=== PATIENT | male | born 1960 | race Caucasian/White ===

== ENCOUNTER 2017-11-08 01:17 | Outpatient (CLI) | payer MEDICARE, MEDICAID ==
[~2017-11-08 01:17] MED LIST: BUPR150T8 PO; FLO0.4C PO; GABA600T PO; HYDR-568 PO; INSU100V36 SQ; LANTUS SQ; LISI-604 PO; OXYB5TAB80 PO; SAXA5TAB PO; TOP25T PO; WARF5TAB PO; ZOC40T PO
== END 2017-11-08 23:59 | disposition home or self-care (01) ==
LOC: DIABETIC 01:17
PROVIDERS: ATTEND Family Medicine
DX: E11.9 Type 2 diabetes mellitus without complications (principal)
CPT/HCPCS: G0108

== ENCOUNTER 2018-03-31 18:45 | Inpatient (IN) | payer MEDICARE, OTHER ==
[~2018-03-31] VITALS: Ht 180.3 cm; Wt 73.0 kg
[2018-03-31 19:21] LABS: BASOPHILS # (AUTO) 0.1 X10'3 (0-0.2); BASOPHILS % (AUTO) 0.8 % (0-1); EOSINOPHILS % (AUTO) 0.7 % (0-6); HEMATOCRIT 42.8 % (42.0-52.0); HEMOGLOBIN 14.4 g/dl (14.0-17.9); LYMPHOCYTES % (AUTO) 14.9 % (21-51); MEAN CORPUSCULAR HEMOGLOBIN 32.2 PG (27.0-31.0); MEAN CORPUSCULAR HGB CONC 33.7 % (33.0-36.5); MEAN CORPUSCULAR VOLUME 95.7 FL (78-98); MEAN PLATELET VOLUME 8.7 FL (7.4-10.4); MONOCYTES # (AUTO) 0.4 X10'3 (0-0.9); MONOCYTES % (AUTO) 5.8 % (2-12); NEUTROPHILS # (AUTO) 5.2 X10'3 (1.8-7.7); NEUTROPHILS % (AUTO) 77.8 % (42-75); PLATELET COUNT 208 X10'3 (140-440); RED BLOOD COUNT 4.47 X10'6 (4.70-6.10); RED CELL DISTRIBUTION WIDTH 13.9 % (11.5-14.5); WHITE BLOOD COUNT 6.7 X10'3 (4.5-11.0)
[2018-03-31] MEDS ORDERED: INSU100V9 SQ (19:27)
[2018-03-31 19:33] LABS: PARTIAL THROMBOPLASTIN TIME 23 SECONDS (22-32)
[2018-03-31 19:40] LABS: ALANINE AMINOTRANSFERASE 30 U/L (12-78); ALBUMIN 3.4 G/DL (3.4-5.0); ALBUMIN/GLOBULIN RATIO 1.2 (1.1-1.5); ALKALINE PHOSPHATASE 79 IU/L (46-116); ANION GAP 10 (8-16); ASPARTATE AMINO TRANSFERASE 21 U/L (10-37); BILIRUBIN,TOTAL 0.5 MG/DL (0.1-1.0); BLOOD UREA NITROGEN 25 MG/DL (7-18); BUN/CREATININE RATIO 14.9 (5.4-32.0); CALCIUM 8.5 MG/DL (8.5-10.1); CHLORIDE 101 MMOL/L (99-107); CREATININE 1.68 MG/DL (0.60-1.10); POTASSIUM 4.2 MMOL/L (3.5-5.1); SODIUM 134 MMOL/L (135-145); TOTAL CARBON DIOXIDE 23.4 MMOL/L (24-32); TOTAL PROTEIN 6.3 G/DL (6.4-8.2); eGFR 42 ML/MIN
[2018-03-31 19:45] LABS: GLUCOSE 521 MG/DL (70-104)
[2018-03-31] MEDS ORDERED: normal saline 1000ml 1,000 ML IVB ONE ×2 (20:05→20:08)
[2018-03-31] MEDS ORDERED: insulin regular, human 10 units/0.1 ml syringe IV ONE (20:20)
[2018-03-31] MEDS ORDERED: normal saline 1000ml 1,000 ML IV ONE ×2 (20:20→22:25)
[2018-03-31 20:36] LABS: ABG BASE EXCESS -8.5 mmol/L (-2.0-3.0); ABG HCO3 16.2 mmol/L (22.0-26.0); ABG PCO2 (T) 30.3 mmHg (35.0-48.0); ABG PH (T) 7.342 (7.350-7.450); ABG PO2 (T) 72.8 mmHg (83-108); ALLEN'S TEST Positive; FCOHb 0.6 % (0.5-1.5); FMetHb 0.2 % (0.3-1.12); FO2Hb 94.2 % (94-100); PATIENT TEMPERATURE 36.2; RESPIRATORY RATE (OBSERVED) 20 b/min; TOTAL HEMOGLOBIN 12.8 G/dl (14.0-18.0)
[2018-03-31 21:28] LABS: CLARITY,URINE CLEAR (Clear); COLOR,URINE YELLOW (Yellow); GLUCOSE, URINE >=1000 mg/dl (Neg); KETONES,URINE 15 mg/dl (Neg); LEUKOCYTE ESTERASE ,URINE NEGATIVE (Neg); NITRITES, URINE NEGATIVE (Neg); OCCULT BLOOD,URINE NEGATIVE (Neg); PROTEIN,URINE NEGATIVE (Neg); UA COLLECTION TYPE CLN CATCH MIDSTREAM; UROBILINOGEN,URINE 0.2 E.U/dL (0.2-1.0)
[2018-03-31 21:37] LABS: BACTERIA,URINE NONE SEEN /HPF (Neg); MUCUS STRANDS NONE SEEN /LPF (Neg); RBC,URINE 0-2 /HPF (0-2); SQUAMOUS EPITHELIAL CELL,UR FEW /LPF (FEW); WBC,URINE 0-4 /HPF (0-4)
[2018-03-31 21:42] LABS: URINE AMPHETAMINE SCREEN NEGATIVE (Neg); URINE BARBITUATE SCREEN NEGATIVE (Neg); URINE BENZODIAZEPINES SCREEN NEGATIVE (Neg); URINE CANNABINOID SCREEN NEGATIVE (Neg); URINE COCAINE SCREEN NEGATIVE (Neg); URINE METHADONE SCREEN NEGATIVE (Neg); URINE OPIATE SCREEN NEGATIVE (Neg); URINE PHENCYCLIDINE SCREEN NEGATIVE (Neg)
[2018-03-31] MEDS ORDERED: iohexol 350MG/ML 100ml bottle IV ONE (22:28)
[2018-04-01] MEDS ORDERED: normal saline 1000ml 1,000 ML IV SCH (00:56)
[2018-04-01] MEDS ORDERED: ondansetron/PF 4mg/2ml inj IV PRN (01:00)
[2018-04-01] MEDS ORDERED: acetaminophen 325mg tablet PO PRN (01:00)
[2018-04-01] MEDS ORDERED: magnesium hydroxide 30ml (MOM) UD suspension PO PRN (01:00)
[2018-04-01] MEDS ORDERED: mag hydrox/Alum hydrox/simeth 30ml oral suspension PO PRN (01:00)
[2018-04-01] MEDS ORDERED: dextrose ORAL solution 15 GM/59 ML bottle PO PRN ×2 (01:05)
[2018-04-01] MEDS ORDERED: dextrose 50%-water 50ml dispensing syringe IV PRN ×2 (01:05)
[2018-04-01] MEDS ORDERED: MESSAGE TO PHARMACY PO ONE (01:05)
[2018-04-01] MEDS ORDERED: insulin Lispro (HumaLOG) vial - multi-dose SQ SCH (01:05)
[2018-04-01] MEDS ORDERED: glucagon, human recombinant 1mg kit SUBCUT PRN (01:05)
[2018-04-01 01:39] LABS: HEMOGLOBIN A1C 11.1 % (4.5-6.2)
[2018-04-01 01:40] VITALS: BP 113/56
[2018-04-01 07:08] VITALS: BP 129/63
[2018-04-01] MEDS ORDERED: lisinopril 5mg tablet PO SCH (08:00)
[2018-04-01] MEDS ORDERED: tamsulosin 0.4mg capsule PO SCH (08:00)
[2018-04-01] MEDS ORDERED: gabapentin 300mg capsule PO SCH (08:00)
[2018-04-01] MEDS ORDERED: buPROPion SR 150mg tablet PO SCH (08:00)
[2018-04-01] MEDS ORDERED: heparin, porcine 5000 units/ml vial SQ SCH (08:00)
[2018-04-01] MEDS ORDERED: enoxaparin 30mg/0.3ml syringe SUBCUT SCH (10:20)
[2018-04-01 11:00] VITALS: BP 165/63
[2018-04-01] MEDS ORDERED: topiramate 25mg tablet PO SCH (21:00)
[2018-04-01] MEDS ORDERED: insulin glargine (Lantus) pen - multi-dose SQ SCH (21:00)
[2018-04-01] MEDS ORDERED: atorvastatin 20mg tablet PO SCH (21:00)
[2018-04-01] MEDS ORDERED: non-formulary drug (Simvastatin* (Zocor*) 1 TAB) PO SCH (21:00)
== END 2018-04-01 12:44 | disposition left against medical advice (07) | DRG 638 ==
LOC: ER 18:47 → SUR 3N 04-01 00:56
PROVIDERS: ADMIT Internal Medicine; ATTEND Internal Medicine
PROC: B32T1ZZ Computerized Tomography (CT Scan) of Left Pulmonary Artery using Low Osmolar Contrast (ICD-10-PCS; principal; 2018-03-31)
PROC: B3201ZZ Computerized Tomography (CT Scan) of Thoracic Aorta using Low Osmolar Contrast (ICD-10-PCS; 2018-03-31)
PROC: B32S1ZZ Computerized Tomography (CT Scan) of Right Pulmonary Artery using Low Osmolar Contrast (ICD-10-PCS; 2018-03-31)
DX: E11.65 Type 2 diabetes mellitus with hyperglycemia (principal); E87.2 Acidosis; N13.30 Unspecified hydronephrosis; K76.6 Portal hypertension; E11.42 Type 2 diabetes mellitus with diabetic polyneuropathy; I25.10 Atherosclerotic heart disease of native coronary artery without angina pectoris; N32.89 Other specified disorders of bladder; N32.0 Bladder-neck obstruction; M54.9 Dorsalgia, unspecified; G89.29 Other chronic pain; K80.20 Calculus of gallbladder without cholecystitis without obstruction; K21.9 Gastro-esophageal reflux disease without esophagitis; Z53.21 Procedure and treatment not carried out due to patient leaving prior to being seen by health care provider; Z88.8 Allergy status to other drugs, medicaments and biological substances; Z79.4 Long term (current) use of insulin; Z79.899 Other long term (current) drug therapy; Z79.01 Long term (current) use of anticoagulants; Z86.711 Personal history of pulmonary embolism; Z86.718 Personal history of other venous thrombosis and embolism; Z82.61 Family history of arthritis
CPT/HCPCS: 36415; 36600; 71045; 71275; 74176; 76700; 80053; 80305; 81001; 82803; 82948; 83036; 83605; 84484; 85018; 85025; 85610; 85730; 87040; 87070; 93005; 96374; 99285; J1644; J1815; J7030; Q9967

== ENCOUNTER 2018-05-01 16:39 | Inpatient (IN) | payer MEDICARE, MEDICAID ==
[~2018-05-01] VITALS: Ht 180.3 cm; Wt 86.4 kg
[~2018-05-01 16:39] MED LIST changes: +HYDR-4384 PO; -HYDR-568 PO; +INSU100V9 SQ; -LANTUS SQ; -WARF5TAB PO
[2018-05-01] MEDS ORDERED: CefTRIAXone 2gm/D5W 50ml 50 ML IV ONE (17:05)
[2018-05-01] MEDS ORDERED: normal saline 1000ML IV soln IV ONE (17:05)
[2018-05-01 17:32] LABS: BASOPHILS # (AUTO) 0.1 X10'3 (0-0.2); BASOPHILS % (AUTO) 0.9 % (0-1); EOSINOPHILS # (AUTO) 0.1 X10'3 (0-0.9); EOSINOPHILS % (AUTO) 1.8 % (0-6); HEMATOCRIT 48.2 % (42.0-52.0); LYMPHOCYTES # (AUTO) 1.1 X10'3 (1.1-4.8); MEAN CORPUSCULAR HEMOGLOBIN 31.6 PG (27.0-31.0); MEAN CORPUSCULAR HGB CONC 33.2 % (33.0-36.5); MEAN CORPUSCULAR VOLUME 95.2 FL (78-98); MEAN PLATELET VOLUME 7.9 FL (7.4-10.4); MONOCYTES # (AUTO) 0.4 X10'3 (0-0.9); MONOCYTES % (AUTO) 6.6 % (2-12); NEUTROPHILS # (AUTO) 4.6 X10'3 (1.8-7.7); NEUTROPHILS % (AUTO) 72.7 % (42-75); PLATELET COUNT 204 X10'3 (140-440); RED BLOOD COUNT 5.06 X10'6 (4.70-6.10); RED CELL DISTRIBUTION WIDTH 14.1 % (11.5-14.5); WHITE BLOOD COUNT 6.4 X10'3 (4.5-11.0)
[2018-05-01 17:39] LABS: PARTIAL THROMBOPLASTIN TIME 25 SECONDS (22-32); PROTHROMBIN TIME 10.3 SECONDS (9.0-12.0)
[2018-05-01 17:44] LABS: ALANINE AMINOTRANSFERASE 28 U/L (12-78); ALBUMIN 3.4 G/DL (3.4-5.0); ALBUMIN/GLOBULIN RATIO 1.1 (1.1-1.5); ALKALINE PHOSPHATASE 90 IU/L (46-116); ANION GAP 11 (8-16); ASPARTATE AMINO TRANSFERASE 15 U/L (10-37); BILIRUBIN,TOTAL 0.6 MG/DL (0.1-1.0); BLOOD UREA NITROGEN 25 MG/DL (7-18); BUN/CREATININE RATIO 23.4 (5.4-32.0); CALCIUM 8.7 MG/DL (8.5-10.1); CHLORIDE 106 MMOL/L (99-107); CREATININE 1.07 MG/DL (0.60-1.10); GLUCOSE 220 MG/DL (70-104); MAGNESIUM 2.1 MG/DL (1.5-2.4); SODIUM 142 MMOL/L (135-145); TOTAL CARBON DIOXIDE 25.2 MMOL/L (24-32); TOTAL PROTEIN 6.5 G/DL (6.4-8.2); eGFR 71 ML/MIN
[2018-05-01] MEDS ORDERED: LIDOcaine 2% 10ml TOPICAL JELLY (Urojet) MM ONE (17:55)
[2018-05-01 18:16] LABS: CLARITY,URINE CLOUDY (Clear); COLOR,URINE RED (Yellow); GLUCOSE, URINE >=1000 mg/dl (Neg); KETONES,URINE TRACE mg/dl (Neg); LEUKOCYTE ESTERASE ,URINE NEGATIVE (Neg); NITRITES, URINE NEGATIVE (Neg); OCCULT BLOOD,URINE LARGE (Neg); PROTEIN,URINE 100 mg/dl (Neg); UROBILINOGEN,URINE 0.2 E.U/dL (0.2-1.0)
[2018-05-01 18:26] LABS: UA COLLECTION TYPE CLN CATCH MIDSTREAM
[2018-05-01 18:28] LABS: RBC,URINE TNTC /HPF (0-2)
[2018-05-01 18:29] LABS: MUCUS STRANDS MODERATE /LPF (Neg); SQUAMOUS EPITHELIAL CELL,UR MODERATE /LPF (FEW)
[2018-05-01 18:30] LABS: BACTERIA,URINE FEW /HPF (Neg)
[2018-05-01] MEDS ORDERED: SITA50TA PO (18:37)
[2018-05-01 18:39] LABS: CREATINE KINASE 59 U/L (39-308)
[2018-05-01] MEDS ORDERED: normal saline 1000ML IV soln IVB ONE (20:10)
[2018-05-01] MEDS ORDERED: acetaminophen 325mg tablet PO PRN (22:00)
[2018-05-01] MEDS ORDERED: mag hydrox/Alum hydrox/simeth 30ml oral suspension PO PRN (22:00)
[2018-05-01] MEDS ORDERED: morphine 2 MG/ML inj. syringe IV PRN ×2 (22:00)
[2018-05-01] MEDS ORDERED: magnesium hydroxide 30ml (MOM) UD suspension PO PRN (22:00)
[2018-05-01] MEDS ORDERED: ondansetron/PF 4mg/2ml inj IV PRN (22:00)
[2018-05-01] MEDS ORDERED: MESSAGE TO PHARMACY PO ONE (22:05)
[2018-05-01] MEDS ORDERED: dextrose ORAL solution 15 GM/59 ML bottle PO PRN ×2 (22:05)
[2018-05-01] MEDS ORDERED: glucagon, human recombinant 1mg kit SUBCUT PRN (22:05)
[2018-05-01] MEDS ORDERED: dextrose 50%-water 50ml dispensing syringe IV PRN ×2 (22:05)
[2018-05-01] MEDS ORDERED: HYDROcodone/acetaminophen 5mg/325mg tablet PO PRN (22:05)
[2018-05-01] MEDS: normal saline 1000ml 1,000 ML IV SCH ×2 (22:45→23:23)
[2018-05-01 23:30] VITALS: BP 163/85
[2018-05-02 03:36] LABS: BASOPHILS % (AUTO) 0.2 % (0-1); EOSINOPHILS # (AUTO) 0.1 X10'3 (0-0.9); EOSINOPHILS % (AUTO) 0.9 % (0-6); HEMATOCRIT 47.2 % (42.0-52.0); HEMOGLOBIN 15.6 g/dl (14.0-17.9); LYMPHOCYTES # (AUTO) 1.4 X10'3 (1.1-4.8); LYMPHOCYTES % (AUTO) 21.8 % (21-51); MEAN CORPUSCULAR HEMOGLOBIN 31.8 PG (27.0-31.0); MEAN CORPUSCULAR VOLUME 96.4 FL (78-98); MEAN PLATELET VOLUME 7.8 FL (7.4-10.4); MONOCYTES # (AUTO) 0.4 X10'3 (0-0.9); MONOCYTES % (AUTO) 5.7 % (2-12); NEUTROPHILS # (AUTO) 4.6 X10'3 (1.8-7.7); NEUTROPHILS % (AUTO) 71.4 % (42-75); PLATELET COUNT 211 X10'3 (140-440); RED BLOOD COUNT 4.89 X10'6 (4.70-6.10); WHITE BLOOD COUNT 6.5 X10'3 (4.5-11.0)
[2018-05-02 03:42] LABS: ALBUMIN 3.2 G/DL (3.4-5.0); ANION GAP 9 (8-16); BLOOD UREA NITROGEN 23 MG/DL (7-18); BUN/CREATININE RATIO 27.1 (5.4-32.0); CALCIUM 8.9 MG/DL (8.5-10.1); CHLORIDE 108 MMOL/L (99-107); CREATININE 0.85 MG/DL (0.60-1.10); GLUCOSE 152 MG/DL (70-104); POTASSIUM 4.3 MMOL/L (3.5-5.1); SODIUM 144 MMOL/L (135-145); TOTAL CARBON DIOXIDE 27.4 MMOL/L (24-32); eGFR > 90 ML/MIN
[2018-05-02] MEDS: heparin, porcine 5000 units/ml vial SQ SCH ×2 (06:47→21:11)
[2018-05-02 07:00] VITALS: BP 121/73
[2018-05-02] MEDS ORDERED: buPROPion SR 150mg tablet PO SCH (08:00)
[2018-05-02] MEDS: buPROPion SR 150mg tablet PO SCH ×2 (08:15→21:10)
[2018-05-02] MEDS: CefTRIAXone/D5W-Rocephin 1gm 50 ML IV SCH (08:15)
[2018-05-02] MEDS: gabapentin 300mg capsule PO SCH ×3 (08:15→21:11)
[2018-05-02] MEDS: normal saline 1000ml 1,000 ML IV SCH ×2 (08:19→22:11)
[2018-05-02 11:35] VITALS: BP 139/80
[2018-05-02 20:00] VITALS: BP 139/83
[2018-05-02] MEDS: insulin glargine (Lantus) pen - multi-dose SQ SCH (21:00)
[2018-05-02] MEDS: atorvastatin 20mg tablet PO SCH (21:11)
[2018-05-03] VITALS: BP 137/87
[2018-05-03] MEDS: normal saline 1000ml 1,000 ML IV SCH (05:07)
[2018-05-03 05:21] LABS: BASOPHILS % (AUTO) 0.4 % (0-1); EOSINOPHILS # (AUTO) 0.1 X10'3 (0-0.9); EOSINOPHILS % (AUTO) 1.5 % (0-6); HEMATOCRIT 46.4 % (42.0-52.0); HEMOGLOBIN 15.6 g/dl (14.0-17.9); LYMPHOCYTES # (AUTO) 1.4 X10'3 (1.1-4.8); LYMPHOCYTES % (AUTO) 27.4 % (21-51); MEAN CORPUSCULAR HEMOGLOBIN 31.7 PG (27.0-31.0); MEAN CORPUSCULAR HGB CONC 33.6 % (33.0-36.5); MEAN CORPUSCULAR VOLUME 94.5 FL (78-98); MEAN PLATELET VOLUME 8.2 FL (7.4-10.4); MONOCYTES # (AUTO) 0.4 X10'3 (0-0.9); NEUTROPHILS # (AUTO) 3.2 X10'3 (1.8-7.7); NEUTROPHILS % (AUTO) 63.7 % (42-75); PLATELET COUNT 200 X10'3 (140-440); RED BLOOD COUNT 4.91 X10'6 (4.70-6.10); RED CELL DISTRIBUTION WIDTH 13.8 % (11.5-14.5)
[2018-05-03 05:46] LABS: ALBUMIN 3.3 G/DL (3.4-5.0); ANION GAP 11 (8-16); BLOOD UREA NITROGEN 20 MG/DL (7-18); BUN/CREATININE RATIO 25.3 (5.4-32.0); CALCIUM 8.9 MG/DL (8.5-10.1); CHLORIDE 104 MMOL/L (99-107); CREATININE 0.79 MG/DL (0.60-1.10); GLUCOSE 184 MG/DL (70-104); POTASSIUM 3.8 MMOL/L (3.5-5.1); SODIUM 140 MMOL/L (135-145); TOTAL CARBON DIOXIDE 24.9 MMOL/L (24-32); eGFR > 90 ML/MIN
[2018-05-03 07:02] VITALS: BP 120/58
[2018-05-03 07:17] VITALS: BP_SYST 120; BP_SYST 127; BP_SYST 128; BP_DIAS 58; BP_DIAS 81; BP_DIAS 87
[2018-05-03 07:19] VITALS: BP 120/58
[2018-05-03] MEDS: buPROPion SR 150mg tablet PO SCH ×2 (07:43→20:53)
[2018-05-03] MEDS: gabapentin 300mg capsule PO SCH ×3 (07:44→20:53)
[2018-05-03] MEDS: moxifloxacin 0.5% ophthalmic drops 3ml EACHEYE SCH ×2 (07:50→20:54)
[2018-05-03] MEDS: heparin, porcine 5000 units/ml vial SQ SCH ×2 (08:55→20:54)
[2018-05-03] MEDS: CefTRIAXone/D5W-Rocephin 1gm 50 ML IV SCH (08:55)
[2018-05-03 12:15] VITALS: BP 147/89
[2018-05-03 18:00] VITALS: BP 128/76
[2018-05-03] MEDS: insulin Lispro (HumaLOG) vial - multi-dose SQ SCH (18:32)
[2018-05-03] MEDS: atorvastatin 20mg tablet PO SCH (20:53)
[2018-05-03] MEDS: lactobacillus rhamnosus 10,000 MMU CELLS/CAPSULE PO SCH (20:53)
[2018-05-03] MEDS ORDERED: tamsulosin 0.4mg capsule PO SCH (21:00)
[2018-05-03] MEDS: insulin glargine (Lantus) pen - multi-dose SQ SCH (21:07)
[2018-05-04] VITALS: BP 169/94
[2018-05-04 00:30] VITALS: BP 119/79
[2018-05-04 06:05] LABS: ALBUMIN 3.3 G/DL (3.4-5.0); ANION GAP 9 (8-16); BLOOD UREA NITROGEN 18 MG/DL (7-18); BUN/CREATININE RATIO 22.5 (5.4-32.0); CHLORIDE 106 MMOL/L (99-107); GLUCOSE 144 MG/DL (70-104); POTASSIUM 4.1 MMOL/L (3.5-5.1); SODIUM 144 MMOL/L (135-145); TOTAL CARBON DIOXIDE 28.6 MMOL/L (24-32); eGFR > 90 ML/MIN
[2018-05-04 06:46] VITALS: BP 94/48
[2018-05-04] MEDS: gabapentin 300mg capsule PO SCH ×2 (07:41→13:04)
[2018-05-04] MEDS: lactobacillus rhamnosus 10,000 MMU CELLS/CAPSULE PO SCH (07:42)
[2018-05-04] MEDS: buPROPion SR 150mg tablet PO SCH (07:42)
[2018-05-04] MEDS: heparin, porcine 5000 units/ml vial SQ SCH (07:43)
[2018-05-04] MEDS: moxifloxacin 0.5% ophthalmic drops 3ml EACHEYE SCH (07:43)
[2018-05-04 08:01] LABS: HEMATOCRIT 46.6 % (42.0-52.0); HEMOGLOBIN 15.7 g/dl (14.0-17.9); MEAN CORPUSCULAR HEMOGLOBIN 32.2 PG (27.0-31.0); MEAN CORPUSCULAR HGB CONC 33.7 % (33.0-36.5); MEAN CORPUSCULAR VOLUME 95.4 FL (78-98); RED BLOOD COUNT 4.88 X10'6 (4.70-6.10); RED CELL DISTRIBUTION WIDTH 13.1 % (11.5-14.5); WHITE BLOOD COUNT 4.8 X10'3 (4.5-11.0)
[2018-05-04 08:02] LABS: MEAN PLATELET VOLUME 8.8 FL (7.4-10.4); NEUTROPHILS % (AUTO) 64.1 % (42-75); PLATELET COUNT 199 X10'3 (140-440)
[2018-05-04 08:03] LABS: BASOPHILS % (AUTO) 0.5 % (0-1); EOSINOPHILS # (AUTO) 0.1 X10'3 (0-0.9); EOSINOPHILS % (AUTO) 2.1 % (0-6); LYMPHOCYTES # (AUTO) 1.2 X10'3 (1.1-4.8); LYMPHOCYTES % (AUTO) 25.9 % (21-51); MONOCYTES # (AUTO) 0.4 X10'3 (0-0.9); MONOCYTES % (AUTO) 7.4 % (2-12)
[2018-05-04] MEDS: insulin Lispro (HumaLOG) vial - multi-dose SQ SCH ×2 (09:10→13:01)
[2018-05-04 11:00] VITALS: BP 101/67
[2018-05-04 13:24] VITALS: BP 114/72
[2018-05-04] MEDS ORDERED: TAMS0.4C32 PO (14:27)
== END 2018-05-04 17:01 | disposition home health service (06) | DRG 74 ==
LOC: ER 16:40 → ED HOLD 22:00 → SUR 3N 23:14
PROVIDERS: ADMIT Internal Medicine; ATTEND Family Medicine
DX: G90.8 Other disorders of autonomic nervous system (principal); N13.6 Pyonephrosis; I10 Essential (primary) hypertension; I95.9 Hypotension, unspecified; E11.43 Type 2 diabetes mellitus with diabetic autonomic (poly)neuropathy; Z60.2 Problems related to living alone; W18.39XA Other fall on same level, initial encounter; E78.5 Hyperlipidemia, unspecified; F32.9 Major depressive disorder, single episode, unspecified; G89.29 Other chronic pain; K21.9 Gastro-esophageal reflux disease without esophagitis; N40.1 Benign prostatic hyperplasia with lower urinary tract symptoms; R33.8 Other retention of urine; Z79.4 Long term (current) use of insulin; Z86.711 Personal history of pulmonary embolism; Z23 Encounter for immunization; Z88.8 Allergy status to other drugs, medicaments and biological substances; Z91.018 Allergy to other foods; Z83.3 Family history of diabetes mellitus; Z82.61 Family history of arthritis; Z82.49 Family history of ischemic heart disease and other diseases of the circulatory system; Z79.899 Other long term (current) drug therapy; Y93.89 Activity, other specified; Y92.091 Bathroom in other non-institutional residence as the place of occurrence of the external cause; Y99.8 Other external cause status
CPT/HCPCS: 36415; 70450; 71045; 74176; 80048; 80053; 81001; 82550; 82948; 83605; 83735; 84145; 84484; 85025; 85610; 85730; 87040; 87070; 87088; 93005; 93306; 93880; 96365; 99285; J0696; J1644; J1815; J7030; Q2037

== ENCOUNTER 2018-05-24 07:08 | Day surgery (SDC) | payer MEDICARE, MEDICAID ==
[2018-05-22 11:11] LABS: CLARITY,URINE CLEAR (Clear); COLOR,URINE YELLOW (Yellow); GLUCOSE, URINE >=1000 mg/dl (Neg); KETONES,URINE 15 mg/dl (Neg); LEUKOCYTE ESTERASE ,URINE NEGATIVE (Neg); NITRITES, URINE NEGATIVE (Neg); OCCULT BLOOD,URINE NEGATIVE (Neg); PH,URINE 5.5 (4.8-8.0); PROTEIN,URINE NEGATIVE (Neg); UROBILINOGEN,URINE 0.2 E.U/dL (0.2-1.0)
[2018-05-22 11:12] LABS: BASOPHILS % (AUTO) 0.5 % (0-1); EOSINOPHILS # (AUTO) 0.1 X10'3 (0-0.9); EOSINOPHILS % (AUTO) 1.5 % (0-6); LYMPHOCYTES # (AUTO) 1.2 X10'3 (1.1-4.8); LYMPHOCYTES % (AUTO) 21.3 % (21-51); MEAN CORPUSCULAR HEMOGLOBIN 31.8 PG (27.0-31.0); MEAN CORPUSCULAR HGB CONC 33.5 % (33.0-36.5); MEAN CORPUSCULAR VOLUME 94.9 FL (78-98); MEAN PLATELET VOLUME 7.7 FL (7.4-10.4); MONOCYTES # (AUTO) 0.4 X10'3 (0-0.9); MONOCYTES % (AUTO) 6.8 % (2-12); NEUTROPHILS % (AUTO) 69.9 % (42-75); PRE OP HEMATOCRIT 49.2 % (42.0-52.0); PRE OP HEMOGLOBIN 16.5 g/dL (14.0-17.9); PRE OP PLATELET COUNT 246 X10'3 (140-440); RED BLOOD COUNT 5.18 X10'6 (4.70-6.10); RED CELL DISTRIBUTION WIDTH 14.1 % (11.5-14.5)
[2018-05-22 11:15] LABS: UA COLLECTION TYPE CLN CATCH MIDSTREAM
[2018-05-22 11:19] LABS: BACTERIA,URINE NONE SEEN /HPF (Neg); MUCUS STRANDS FEW /LPF (Neg); RBC,URINE NONE SEEN /HPF (0-2); SPERM MANY /HPF (NEGATIVE); SQUAMOUS EPITHELIAL CELL,UR FEW /LPF (FEW); TRANSITIONAL EPI CELLS,URINE FEW /HPF; WBC,URINE 0-4 /HPF (0-4)
[2018-05-22 11:34] LABS: ALBUMIN 3.6 G/DL (3.4-5.0); ALKALINE PHOSPHATASE 115 IU/L (46-116); BLOOD UREA NITROGEN 17 MG/DL (7-18); BUN/CREATININE RATIO 22.1 (5.4-32.0); CALCIUM 8.9 MG/DL (8.5-10.1); CHLORIDE 104 MMOL/L (99-107); CREATININE 0.77 MG/DL (0.60-1.10); PRE OP ALT 30 U/L (30-65); PRE OP ANION GAP 8 (8-16); PRE OP AST 14 U/L (10-37); PRE OP BILIRUB, TOTAL 0.8 MG/DL (0.0-1.0); PRE OP SODIUM 142 MMOL/L (135-145); TOTAL CARBON DIOXIDE 29.7 MMOL/L (24-32); TOTAL PROTEIN 7.3 G/DL (6.4-8.2); eGFR > 90 ML/MIN
[2018-05-22 11:37] LABS: PRE OP GLUCOSE 203 MG/DL (70-104)
[2018-05-24] VITALS (10 sets, daily range): BP systolic 129–190; BP diastolic 76–102
[~2018-05-24] VITALS: Ht 180.3 cm; Wt 88.8 kg
[~2018-05-24 07:08] MED LIST changes: +EMPA10TA PO; -FLO0.4C PO; -OXYB5TAB80 PO; -SAXA5TAB PO; +TAMS0.4C32 PO; -TOP25T PO; +ceFOXitin 2 GM ADDvantage bag 100 ML IV ONE; +famotidine 20mg tablet PO ONE; +ringers solution, lacted 1,000 ML IV SCH
[2018-05-24] MEDS ORDERED: FLO0.4C PO (08:42)
[2018-05-24] MEDS ORDERED: epiNEPHrine 1 mg/ml inj ONE (08:49)
[2018-05-24] MEDS ORDERED: ceFAZolin 1000mg inj ONE (08:49)
[2018-05-24] MEDS ORDERED: BUPIVAcaine/PF 2.5mg/ml (0.25%) 10ml vial ONE (08:50)
[2018-05-24] MEDS ORDERED: sevoflurane 250ml liquid IH ONE (09:38)
[2018-05-24] MEDS ORDERED: midazolam 2 mg/2 ml injection ONE (09:43)
[2018-05-24] MEDS ORDERED: fentaNYL /PF 50mcg/ml 5ml ampule ONE (09:44)
[2018-05-24] MEDS ORDERED: rocuronium 10mg/ml inj IV ONE (09:45)
[2018-05-24] MEDS ORDERED: ePHEDrine 50MG/ML INJ. ONE (10:04)
[2018-05-24] MEDS ORDERED: propofol inj 20 ML IV ONE (10:04)
[2018-05-24] MEDS ORDERED: ringers solution, lacted 1,000 ML IV SCH (10:17)
[2018-05-24] MEDS ORDERED: proCHLORperazine 10 MG/2 ml inj IV PRN (10:20)
[2018-05-24] MEDS ORDERED: labetalol 20mg/4ml (5mg/ml) syringe IV PRN (10:20)
[2018-05-24] MEDS ORDERED: ondansetron/PF 4mg/2ml inj IV PRN (10:20)
[2018-05-24] MEDS ORDERED: morphine 4 MG/ML inj SYRINge IV PRN ×2 (10:20)
[2018-05-24] MEDS ORDERED: meperidine/PF 25mg/ml syringe IV PRN ×2 (10:20)
[2018-05-24] MEDS ORDERED: neostigmine methylsulfate 1 MG/ML 10ml vial ONE (10:53)
[2018-05-24] MEDS ORDERED: glycopyrrolate 0.2mg/ml inj ONE (10:53)
[2018-05-24] MEDS: meperidine/PF 25mg/ml syringe IV PRN ×3 (11:20→11:45)
== END 2018-05-24 12:10 | disposition home or self-care (01) ==
LOC: PAS 07:08
PROVIDERS: ATTEND Surgery
DX: K80.10 Calculus of gallbladder with chronic cholecystitis without obstruction (principal); I10 Essential (primary) hypertension; K21.9 Gastro-esophageal reflux disease without esophagitis; F32.9 Major depressive disorder, single episode, unspecified; N40.0 Benign prostatic hyperplasia without lower urinary tract symptoms; E66.9 Obesity, unspecified; G47.33 Obstructive sleep apnea (adult) (pediatric); M19.90 Unspecified osteoarthritis, unspecified site; G89.29 Other chronic pain; F41.8 Other specified anxiety disorders; E11.42 Type 2 diabetes mellitus with diabetic polyneuropathy; M06.9 Rheumatoid arthritis, unspecified; Z87.01 Personal history of pneumonia (recurrent); Z96.652 Presence of left artificial knee joint; Z96.661 Presence of right artificial ankle joint; Z96.662 Presence of left artificial ankle joint; Z86.711 Personal history of pulmonary embolism; Z79.01 Long term (current) use of anticoagulants; Z79.891 Long term (current) use of opiate analgesic; Z79.4 Long term (current) use of insulin; Z91.018 Allergy to other foods; Z72.89 Other problems related to lifestyle; Z98.890 Other specified postprocedural states; Z79.899 Other long term (current) drug therapy; Z88.8 Allergy status to other drugs, medicaments and biological substances; Z83.2 Family history of diseases of the blood and blood-forming organs and certain disorders involving the immune mechanism; Z84.89 Family history of other specified conditions; Z82.61 Family history of arthritis; Z83.3 Family history of diabetes mellitus; Z82.49 Family history of ischemic heart disease and other diseases of the circulatory system
CPT/HCPCS: 36415; 47562; 80053; 81001; 82948; 85025; J0171; J0690; J0694; J2175; J2250; J2704; J2710; J3010; J3490; J7120; A7000

== ENCOUNTER 2019-07-22 15:35 | Emergency (ER) | payer MEDICARE, MEDICAID ==
[~2019-07-22] VITALS: Ht 180.3 cm; Wt 89.1 kg
[~2019-07-22 15:35] MED LIST changes: +FLO0.4C PO; -TAMS0.4C32 PO; -ceFOXitin 2 GM ADDvantage bag 100 ML IV ONE; -famotidine 20mg tablet PO ONE; -ringers solution, lacted 1,000 ML IV SCH
[2019-07-22 15:38] VITALS: BP 90/55
[2019-07-22] MEDS ORDERED: AMOX-580 PO (15:53)
== END 2019-07-22 16:04 | disposition home or self-care (01) ==
LOC: ER 15:36
DX: J32.1 Chronic frontal sinusitis (principal); J32.0 Chronic maxillary sinusitis; G89.29 Other chronic pain; E11.42 Type 2 diabetes mellitus with diabetic polyneuropathy; Z56.0 Unemployment, unspecified; Z86.711 Personal history of pulmonary embolism; Z88.8 Allergy status to other drugs, medicaments and biological substances; Z79.899 Other long term (current) drug therapy; Z79.4 Long term (current) use of insulin
CPT/HCPCS: 99283